=== PATIENT | female | born 1970 | race Caucasian/White ===

== ENCOUNTER 2024-02-19 17:14 | Emergency (ER) | payer OTHER, SELFPAY ==
[2024-02-19 17:16] VITALS: BP 91/78
[2024-02-19 17:32] LABS: % Basophils 0.6 % (0-2); % Immature Granulocytes 0.5 % (0-0.5); % Lymphocytes 17.7 % (20.5-51.1); % Monocytes 4.8 % (1.7-9.3); % Neutrophils 75.4 % (42.2-75.2); Absolute Basophils 0.1 10^3/uL (0-0.2); Absolute Eosinophils 0.1 10^3/uL (0-0.7); Absolute Immature Granulocytes 0.1 10^3/uL (0-0.05); Absolute Lymphocytes 2.2 10^3/uL (1.2-3.4); Absolute Monocytes 0.6 10^3/uL (0.1-0.6); Absolute Neutrophils 9.4 10^3/uL (1.4-6.5); Hematocrit 37.9 % (37.0-47.0); Hemoglobin 12.8 g/dL (12.0-16.0); Mean Corp Hgb Conc. 33.8 g/dL (33.0-37.0); Mean Corpuscular Hgb 30.7 pg (27.0-31.0); Mean Corpuscular Volume 90.9 fL (81.0-99.0); Mean Platelet Volume 9.9 fL (7.4-10.4); Nucleated Red Blood Cells % 0 %; Platelet Count 258 10^3/uL (130-400); Red Blood Cell Count 4.17 10^6/uL (4.20-5.40); White Blood Cell Count 12.4 10^3/uL (4.8-10.8)
[2024-02-19 17:51] LABS: ALT (SGPT) 23 U/L (0-35); AST (SGOT) 31 U/L (14-36); Albumin 4.3 g/dl (3.5-5.0); Alkaline Phosphatase 56 U/L (38-126); Blood Urea Nitrogen 15 mg/dl (7-17); Carbon Dioxide 24 mmol/L (22-30); Glucose 93 mg/dl (70-99); Total Bilirubin 0.3 mg/dl (0.2-1.3); Total Protein 6.6 g/dl (6.3-8.2); eGFR > 60.00
[2024-02-19 18:13] VITALS: BMI 24.6
[2024-02-19 18:13] LABS: Chloride 104 mmol/L (98-107); Potassium 4.5 mmol/L (3.5-5.1); Sodium 135 mmol/L (135-145)
--- NOTE | 2024-02-19 18:14 | EDRN ---
LAC #20 PIV removed per the pts request, PIV was placed via EMS, the site was reddened, positive blood return, no infiltration, PIV removed and pressure dressing applied
[2024-02-19 18:15] VITALS: BP 106/77
--- NOTE | 2024-02-19 18:27 | ED.GENMED ---
History of Present Illness
General
Chief Complaint: Fainting/Passed Out
Source: patient and spouse
Exam Limitations: none
Time Seen by Provider: 02/19/24 18:12
Nursing documentation reviewed up to this point in time: agreed with
History of Present Illness
History of Present Illness:
54-year-old female with no clinically significant past medical history other than has had fainting in the past and her brother has history of vasovagal attacks.
Patient is here for a syncopal episode.
She states she was walking around [place] earlier this evening with her family, she was having stomach pains as she is lactose intolerant, they are visiting from [place] and has been eating a lot of dairy, not following her usual restriction
on dairy foods. She went to bathroom, urinated, stood, felt dizzy, sat down and and daughter at bedside state she slumped to the side and it took several seconds to 'come to.' She was pale and sweaty. States now she feels 'good,' 'tired.'
Denies abdominal pain.
Past History
Past History
ED Past Medical History: Psychiatric (depression)
ED Past Surgical History: Gynecological (tubal ligation)
Social History
Tobacco: Non-smoker
Alcohol: Occasional
Personal:
Living: with family (visiting from [place])
Review of Systems
Review of Systems
Allergies reviewed?: Yes
All Other Systems: ROS reviewed and negative except as documented in HPI and ROS
Constitutional: Denies fever or fatigue
Respiratory: Denies trouble breathing
Cardiac: Reports diaphoresis and syncope; Denies chest pain or palpitations
ABD/GI: Reports abdominal pain; Denies nausea, vomiting, diarrhea, bloody stools, black stools or anorexia
: Denies dysuria or difficulty voiding
Musculoskeletal: Reports no symptoms
Skin: Reports no symptoms
Neurological: Reports no symptoms
Phy Exam
Physical Exam
Physical Exam:
GENERAL: No acute distress. A&Ox3.
CONSTITUTIONAL: Afebrile.
EYES: clear, conjunctivae normal
ENMT: moist mucus membranes, Pharynx nl
RESPIRATORY: Regular respirations, nonlabored, lungs clear.
CARDIOVASCULAR: Regular rate and rhythm, no murmurs, no rubs.
GI: Soft, nontender, normal BS
MUSCULOSKELETAL: Moves with ease. Well perfused.
SKIN: Warm, dry, pink
PSYCH: Normal mood and affect. Well kept, interactive and appropriate
NEUROLOGIC: Awake, alert and oriented. No focal neurological deficits
Course
Orders/Labs/Results
Orders:
Orders
02/19/24 17:16
EKG [Electrocardiogram (*1)] Urgent
Reason for Study: Syncope
EKG- Treatment ONCE
02/19/24 17:26
Complete Blood Count/With Diff Urgent
Comprehensive Metabolic Panel Urgent
Abnormal Lab Results
02/19/24
17:26
WBC 12.4 H 10^3/uL
(4.8-10.8)
RBC 4.17 L 10^6/uL
(4.20-5.40)
Abs Immat Gran (auto) 0.1 H 10^3/uL
(0-0.05)
Absolute Neuts (auto) 9.4 H 10^3/uL
(1.4-6.5)
Neutrophils % 75.4 H %
(42.2-75.2)
Lymphocytes % 17.7 L %
(20.5-51.1)
02/19/24 17:26
02/19/24 17:26
Vital Signs
Initial and Last Documented VS:
Initial Vital Signs
Temp Pulse Resp BP Pulse Ox
98.5 F 57 18 91/78 98
02/19/24 17:16 02/19/24 17:16 02/19/24 17:16 02/19/24 17:16 02/19/24 17:16
Last Documented Vital Signs
Temp Pulse Resp BP Pulse Ox
98.5 F 78 20 111/69 99
02/19/24 18:15 02/19/24 18:35 02/19/24 18:35 02/19/24 18:35 02/19/24 18:35
MDM/Problems Addressed
Differential Diagnosis Includes:
Dehydration, vasovagal episode.
MDM/Problems Addressed:
54-year-old female with no clinically significant past medical history other than has had fainting in the past and her brother has history of vasovagal attacks.
Patient is here for a syncopal episode.
She states she was walking around [place] earlier this evening with her family, she was having stomach pains as she is lactose intolerant, they are visiting from [place] and has been eating a lot of dairy, not following her usual restriction
on dairy foods. She went to bathroom, urinated, stood, felt dizzy, sat down and and daughter at bedside state she slumped to the side and it took several seconds to 'come to.' She was pale and sweaty. States now she feels 'good,' 'tired.'
Denies abdominal pain.
CBC with no clinically significant abnormality
CMP normal
Patient drinking well, out of bed and ambulating steadily.
History and exam is consistent with a vasovagal episode.
BP 111/69
*Critical Care Note
Total Time (30-74mins, 75-104mins- exclusive of procedures): Not Applicable
ED Attending Note
-
Portions of this chart may have been created with voice recognition software.� Occasional wrong word or��sound alike� substitutions may have occurred due to the inherent limitations of voice recognition software.
Discharge Plan
Departure
Patient Disposition: Home (Routine Discharge)
Date of Disposition: 02/19/24
Time of Disposition: 18:36
Patient with high blood pressure during this ER visit?: No
Condition: Good
Discharge Problem:
Vasovagal episode
Instructions: Syncope (Fainting) (DC)
Activity Restrictions/Additional Instructions:
As we discussed, it sounds like you had a vasovagal episode due to your abdominal pain.
Your blood work shows nothing worrisome. Your EKG is normal
Interventions
Interventions:
*Risk Screen - Suicide Last Done: 02/19/24 17:16
*General Assessment Last Done: 02/19/24 17:16
*Neglect/Abuse Screening Last Done: 02/19/24 17:16
ED- Fall Risk Assessment Last Done: 02/19/24 18:15
*ED COVID-19 Vaccine History Last Done: 02/19/24 17:16
*Nursing Disposition Last Done: 02/19/24 18:44
ED- Cardiac Assessment Last Done: 02/19/24 18:15
ED- Neurological Assessment Last Done: 02/19/24 18:15
Discharge Date and Time
Print Language: ARABIC
[2024-02-19 18:31] VITALS: BP 105/71
[2024-02-19 18:34] VITALS: BP 111/64
[2024-02-19 18:35] VITALS: BP 111/69
[2024-02-19 18:42] VITALS: BP 105/71; BP 111/61; BP 111/64; PULSE 70; PULSE 76; PULSE 77
== END 2024-02-19 18:52 | disposition home or self-care (01) ==
LOC: EMR 17:14
PROVIDERS: Emergency Medicine; EMERGENCY PHYSICIAN Student in an Organized Health Care Education/Training Program
DX: R55 Syncope and collapse (principal); E73.9 Lactose intolerance, unspecified
CPT/HCPCS: 99284; 80053; 85025; 93005